=== PATIENT | male | born 1995 | race Caucasian/White ===

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

== ENCOUNTER 2017-05-09 12:56 | Emergency (ER) | payer OTHER ==
[~2017-05-09] VITALS: Ht 188 cm; Wt 72.9 kg
[~2017-05-09 12:56] MED LIST: MULT-513 PO
[2017-05-09 13:04] VITALS: TEMP 36.8; Ht 188 cm; Wt 72.9 kg
--- NOTE | 2017-05-09 15:13 | DIAGNOSTIC IMAGING REPORT ---
CHEST ONE VIEW PORTABLE CLINICAL HISTORY: 21 years-old Male presenting with palpitations. TECHNIQUE: Portable upright AP view of the chest was obtained. COMPARISON: None. FINDINGS: Mildly prominent cardiac silhouette likely due to portable AP technique. Lungs and pleural spaces clear. Osseous structures normal. Upper abdomen normal. IMPRESSION: 1. No acute cardiopulmonary disease. Electronically signed by: Les Ortega M.D. 05/09/2017 3:11 PM Dictated Date/Time: 05/09/2017 3:11 PM
[2017-05-09 15:17] LABS: BASO % 0.7 %; BASO ABS # 0.07 K/uL (0-0.2); COMPLETE YES; EOS % 7.8 %; HEMATOCRIT 44.1 % (42-52); IG% 0.2 %; LYMPH % 22.9 %; LYMPH ABS # 2.46 K/uL (1.2-3.4); MEAN CELL VOLUME 89.1 fL (80-100); MEAN CORPUSCULAR HEMOGLOBIN 31.9 pg (25-34); MEAN CORPUSCULAR HGB CONC 35.8 g/dl (32-36); MEAN PLATELET VOLUME 11.5 fL (7.4-10.4); MONO % 9.4 %; PLATELET COUNT 274 K/uL (130-400); RED BLOOD COUNT 4.95 M/uL (4.7-6.1); WHITE BLOOD COUNT 10.73 K/uL (4.8-10.8)
[2017-05-09 15:39] LABS: BLOOD UREA NITROGEN 14 mg/dl (7-18); CALCIUM 9.7 mg/dl (8.5-10.1); CARBON DIOXIDE 27 mmol/L (21-32); CHLORIDE 105 mmol/L (98-107); CREATININE 0.85 mg/dl (0.60-1.40); GLUCOSE 90 mg/dl (70-99); MAGNESIUM 2.2 mg/dl (1.8-2.4); SODIUM 140 mmol/L (136-145)
--- NOTE | 2017-05-09 16:44 | EMERGENCY ROOM VISIT NOTE ---
History Report prepared by Soy: Kareem Parmar Under the Supervision of: Dr. Evita Rianes D.O. First contact with patient: 13:55 Chief Complaint: PALPITATIONS Stated Complaint: HEART PALPITATIONS History of Present Illness The patient is a 21 year old male who presents to the Emergency Room with complaints of intermittent chest palpitations beginning four days ago. The patient was seen at [facility] just prior to arrival and was referred to the ED. He describes his symptoms as a "pounding" in his chest. He notes that he has a history of a RBBB on ECG and a history of a bicuspid aorta. The patient denies any significant dizziness, vomiting, SOB, chest pain, or nausea. He states that he tends to notice his symptoms when resting and after drinking caffeine. He notes that he had three exams this week, but does not feel that he was particularly stressed this week. The patient notes that he had a small amount of diarrhea recently. Source of History: patient Onset: Four days ago Position: chest Quality: other ("pounding") Timing: intermittent Modifying Factors (Worsening): rest, other (Caffeine) Associated Symptoms: + diarrhea, No chest pain, No SOB, No nausea, No vomiting Note: The patient denies any significant dizziness. Review of Systems See HPI for pertinent positives & negatives. A total of 10 systems reviewed and were otherwise negative. Past Medical & Surgical Medical Problems: (1) Bicuspid aortic valve (2) RBBB Family History No pertinent family history stated. Social History Smoking Status: Never Smoker Occupation Status: [employer] student Current/Historical Medications Scheduled Multivitamins/Minerals (Mvi With Minerals), 1 TAB PO DAILY Allergies Coded Allergies: No Known Allergies (Unverified , 05/09/17) Physical Exam Vital Signs Date Time Temp Pulse Resp B/P (MAP) Pulse Ox O2 Delivery O2 Flow Rate FiO2 05/09/17 16:55 88 16 112/68 98 05/09/17 16:00 72 16 120/75 98 Room Air 05/09/17 15:04 72 16 112/76 98 Room Air 05/09/17 13:06 98 Room Air 05/09/17 13:04 36.8 86 16 133/87 99 Room Air Physical Exam GENERAL: alert, well appearing, well nourished, no distress, non-toxic EYE EXAM: normal conjunctiva, PERRL and EOM's grossly intact OROPHARYNX: no exudate, no erythema, lips, buccal mucosa, and tongue normal and mucous membranes are moist NECK: supple, no nuchal rigidity, no adenopathy, non-tender LUNGS: Clear to auscultation. Normal chest wall mechanics HEART: no murmurs, S1 normal and S2 normal ABDOMEN: abdomen soft, non-tender, normo-active bowel sounds, no masses, no rebound or guarding. BACK: Back is symmetrical on inspection and there is no deformity, no midline tenderness, no CVA tenderness. SKIN: no rashes and no bruising UPPER EXTREMITIES: upper extremities are grossly normal. LOWER EXTREMITIES: No pitting edema. NEURO EXAM: Normal sensorium, cranial nerves II-XII grossly intact, normal speech, no gross weakness of arms, no gross weakness of legs. Medical Decision & Procedures ER Provider Diagnostic Interpretation: Radiology results have been interpreted by the radiologist and reviewed by me. CHEST ONE VIEW PORTABLE FINDINGS: Mildly prominent cardiac silhouette likely due to portable AP technique. Lungs and pleural spaces clear. Osseous structures normal. Upper abdomen normal. IMPRESSION: 1. No acute cardiopulmonary disease. Electronically signed by: Les Ortega M.D. 05/09/2017 3:11 PM Laboratory Results 05/09/17 14:46 Red Blood Count 4.95, Mean Corpuscular Volume 89.1, Mean Corpuscular Hemoglobin 31.9, Mean Corpuscular Hemoglobin Concent 35.8, Mean Platelet Volume 11.5, Neutrophils (%) (Auto) 59.0, Lymphocytes (%) (Auto) 22.9, Monocytes (%) (Auto) 9.4, Eosinophils (%) (Auto) 7.8, Basophils (%) (Auto) 0.7, Neutrophils # (Auto) 6.33, Lymphocytes # (Auto) 2.46, Monocytes # (Auto) 1.01, Eosinophils # (Auto) 0.84, Basophils # (Auto) 0.07 05/09/17 14:46 Test 05/09/17 14:46 White Blood Count 10.73 K/uL (4.8-10.8) Red Blood Count 4.95 M/uL (4.7-6.1) Hemoglobin 15.8 g/dL (14.0-18.0) Hematocrit 44.1 % (42-52) Mean Corpuscular Volume 89.1 fL (80-100) Mean Corpuscular Hemoglobin 31.9 pg (25-34) Mean Corpuscular Hemoglobin Concent 35.8 g/dl (32-36) Platelet Count 274 K/uL (130-400) Mean Platelet Volume 11.5 fL (7.4-10.4) Neutrophils (%) (Auto) 59.0 % Lymphocytes (%) (Auto) 22.9 % Monocytes (%) (Auto) 9.4 % Eosinophils (%) (Auto) 7.8 % Basophils (%) (Auto) 0.7 % Neutrophils # (Auto) 6.33 K/uL (1.4-6.5) Lymphocytes # (Auto) 2.46 K/uL (1.2-3.4) Monocytes # (Auto) 1.01 K/uL (0.11-0.59) Eosinophils # (Auto) 0.84 K/uL (0-0.5) Basophils # (Auto) 0.07 K/uL (0-0.2) RDW Standard Deviation 39.0 fL (36.4-46.3) RDW Coefficient of Variation 12.3 % (11.5-14.5) Immature Granulocyte % (Auto) 0.2 % Immature Granulocyte # (Auto) 0.02 K/uL (0.00-0.02) Anion Gap 8.0 mmol/L (3-11) Est Creatinine Clear Calc Drug Dose 144.1 ml/min Estimated GFR () 146.4 Estimated GFR (Non- 126.3 BUN/Creatinine Ratio 16.0 (10-20) Calcium Level 9.7 mg/dl (8.5-10.1) Magnesium Level 2.2 mg/dl (1.8-2.4) Troponin I < 0.015 ng/ml (0-0.045) Thyroid Stimulating Hormone (TSH) 1.180 uIu/ml (0.300-4.500) Laboratory results per my review. ECG Indication: palpitations Rate (beats per minute): 78 Rhythm: normal sinus Findings: no acute ischemic change, no ectopy, other (Mild intraventricular conduction delay. ) ED Course 1408: The patient was evaluated in room C5. A complete history and physical exam was performed. 1630: Upon reevaluation, the patient is feeling better. I discussed the findings and the treatment plan with the patient. He verbalizes agreement and understanding. He was discharged home. Medical Decision Differential diagnosis: Etiologies such as premature contractions, electrolyte abnormality, cardiac dysrhythmia, thyroid dysfunction, pulmonary embolism, infection, gastrointestinal, as well as others were entertained. Pt well appearing, possible palpitations related to dehydration/caffeine/ stress. No exertional sx, no syncope, no sob, doubt related to bicuspid aorta. No sx to suggest chf, acute valve failure, acute stenosis, occult infection. VS stable. No dysrhythmia noted on tele. Discussed f/u with mat tester who evaluated him this summer, sx to watch/return for, avoidance of strenuous activity/caffeine/etoh, adequate hydration, ddx, he verbalized understanding of all of this and was agreeable with plan. Impression Primary Impression: Palpitations Scribe Attestation The scribe's documentation has been prepared under my direction and personally reviewed by me in its entirety. I confirm that the note above accurately reflects all work, treatment, procedures, and medical decision making performed by me. Departure Information Dispostion Home / Self-Care Referrals No Doctor, Assigned (PCP) Patient Instructions My [facility] Additional Instructions Please follow up with your mat tester. If you have any recurrent episodes of palpitations, develop palpitations with exertion, develop chest pain or pressure , trouble breathing, dizziness, feels though you're going to black out or pass out, develop vomiting, fevers, or you have any other new concerns, please return the emergency room.
[2017-05-09 16:55] VITALS: BP 112/68; PULSE 88; O2SAT 98
== END 2017-05-09 16:56 | disposition home or self-care (01) ==
LOC: C.EDB 13:01 → C.EDC 16:56
DX: R00.2 Palpitations (principal); Z86.79 Personal history of other diseases of the circulatory system

== ENCOUNTER 2017-07-17 22:51 | Emergency (ER) | payer OTHER ==
[~2017-07-17] VITALS: Ht 188 cm; Wt 74.3 kg
[2017-07-17 22:53] VITALS: Ht 188 cm; Wt 74.3 kg
--- NOTE | 2017-07-17 23:10 | EMERGENCY ROOM VISIT NOTE ---
History Report prepared by Soy: Miky Gayle Under the Supervision of: Dr. Evita Raines D.O. First contact with patient: 23:02 Chief Complaint: GI ASSESSMENT Stated Complaint: VOMITING BLOOD Nursing Triage Summary: Pt started with diarrhea around 4pm today, states it was black and tarry looking. Pt was in shower later on and started feeling lightheaded/dizzy. Pt had gotten out and had vomited x1 since. Pt states it had red in it but he had a red gatorade earlier. Pt denies abd pain. History of Present Illness The patient is a 21 year old male who presents to the Emergency Room with complaints of a persistent need for a GI assessment that started around 8 hours ago. He says that he first started with diarrhea, and his first episode was dark , tarry, and black. He states that the first episode of diarrhea was formed, but after that, he has had liquid, dark stools every 20 minutes. The patient says that 1 hour prior to coming here, he had an episode of vomiting that was bright red, but he does note that he drank red Gatorade earlier today. He notes that he got really dizzy after the vomiting episode, which prompted him to come here. He says that the vomiting relieved his nausea, but as laying in bed here he notes that he is getting more nauseous. The patient states that he still has urges to have diarrhea. He denies any loss of consciousness, severe abdominal pain, fevers, shortness of breath, chest pain, muscle pain or weakness, or urinary symptoms. He says that he has not had any known recent sick contacts. The patient states that he has a questionable IBS history, but has never been formally diagnosed. He notes a history of a right bundle branch block. The patient denies any recent travel history. Source of History: patient Onset: Around 8 hours ago Position: other (global - need for GI assessment) Timing: other (persistent) Associated Symptoms: + nausea, + vomiting (questionable blood), + melena ( questionable), + hematochezia (questonable), No LOC, No fevers, No chest pain, No SOB, No abdominal pain (any severe), No urinary symptoms, No weakness Note: Associated symptoms: Dizziness. Denies muscle pain. Review of Systems See HPI for pertinent positives & negatives. A total of 10 systems reviewed and were otherwise negative. Past Medical & Surgical Medical Problems: (1) Bicuspid aortic valve (2) RBBB Family History Hypertension Social History Smoking Status: Never Smoker Alcohol Use: occasionally Occupation Status: [employer] student Current/Historical Medications Scheduled Pantoprazole (Protonix), 1 TAB PO DAILY Allergies Coded Allergies: No Known Allergies (Unverified , 07/18/17) Physical Exam Vital Signs Date Time Temp Pulse Resp B/P (MAP) Pulse Ox O2 Delivery O2 Flow Rate FiO2 07/18/17 03:28 36.8 92 18 126/77 97 Room Air 07/18/17 03:03 83 07/18/17 02:42 94 18 128/80 99 Room Air 90 136/87 126 128/78 07/18/17 02:13 91 18 133/84 100 Room Air 07/18/17 00:51 121 18 98 Room Air 07/18/17 00:31 98 131/80 07/17/17 23:32 120/91 07/17/17 23:31 07/17/17 23:21 133 22 99 07/17/17 23:18 133/81 07/17/17 23:07 123 07/17/17 22:53 133/113 07/17/17 22:53 37.0 130 18 133/113 97 Room Air Physical Exam GENERAL: alert, well appearing, well nourished, no distress, non-toxic EYE EXAM: normal conjunctiva, PERRL and EOM's grossly intact OROPHARYNX: no exudate, no erythema, lips, buccal mucosa, and tongue normal and mucous membranes are moist NECK: supple, no nuchal rigidity, no adenopathy, non-tender LUNGS: Clear to auscultation. Normal chest wall mechanics HEART: no murmurs, S1 normal and S2 normal ABDOMEN: abdomen soft, non-tender, normo-active bowel sounds, no masses, no rebound or guarding. BACK: Back is symmetrical on inspection and there is no deformity, no midline tenderness, no CVA tenderness. SKIN: no rashes and no bruising UPPER EXTREMITIES: upper extremities are grossly normal. LOWER EXTREMITIES: No pitting edema. NEURO EXAM: Normal sensorium, cranial nerves II-XII intact, normal speech, no weakness of arms, no weakness of legs. Medical Decision & Procedures ER Provider Diagnostic Interpretation: X-ray results have been interpreted and reviewed by me. Chest: no cardiomegaly, no effusion, no infiltrate, no wide mediastinum Abdomen: air seen throughout colon, no definite SBO, no free air CT angiogram abdomen and pelvis with contrast: Hepatic steatosis versus more likely phase of contrast enhancement. Normal appendix. Fluid throughout the colon and rectum may represent diarrheal state. No bowel obstruction or inflammation. No definite evidence of active hemorrhage in the GI tract. Small mesenteric lymph nodes are nonspecific but may be reactive. Normal vasculature. Radiologist: Desiree Chang M.D. Laboratory Results 07/17/17 23:32 Red Blood Count 4.33, Mean Corpuscular Volume 90.5, Mean Corpuscular Hemoglobin 32.1, Mean Corpuscular Hemoglobin Concent 35.5, Mean Platelet Volume 11.5, Neutrophils (%) (Auto) 72.1, Lymphocytes (%) (Auto) 15.2, Monocytes (%) (Auto) 7.8, Eosinophils (%) (Auto) 4.1, Basophils (%) (Auto) 0.5, Neutrophils # (Auto) 10.52, Lymphocytes # (Auto) 2.22, Monocytes # (Auto) 1.13, Eosinophils # (Auto) 0.60, Basophils # (Auto) 0.07 07/17/17 23:32 Test 07/17/17 23:32 White Blood Count 14.58 K/uL (4.8-10.8) Red Blood Count 4.33 M/uL (4.7-6.1) Hemoglobin 13.9 g/dL (14.0-18.0) Hematocrit 39.2 % (42-52) Mean Corpuscular Volume 90.5 fL (80-100) Mean Corpuscular Hemoglobin 32.1 pg (25-34) Mean Corpuscular Hemoglobin Concent 35.5 g/dl (32-36) Platelet Count 331 K/uL (130-400) Mean Platelet Volume 11.5 fL (7.4-10.4) Neutrophils (%) (Auto) 72.1 % Lymphocytes (%) (Auto) 15.2 % Monocytes (%) (Auto) 7.8 % Eosinophils (%) (Auto) 4.1 % Basophils (%) (Auto) 0.5 % Neutrophils # (Auto) 10.52 K/uL (1.4-6.5) Lymphocytes # (Auto) 2.22 K/uL (1.2-3.4) Monocytes # (Auto) 1.13 K/uL (0.11-0.59) Eosinophils # (Auto) 0.60 K/uL (0-0.5) Basophils # (Auto) 0.07 K/uL (0-0.2) RDW Standard Deviation 39.8 fL (36.4-46.3) RDW Coefficient of Variation 12.1 % (11.5-14.5) Immature Granulocyte % (Auto) 0.3 % Immature Granulocyte # (Auto) 0.04 K/uL (0.00-0.02) Anion Gap 4.0 mmol/L (3-11) Est Creatinine Clear Calc Drug Dose 156.1 ml/min Estimated GFR () > 150.0 Estimated GFR (Non- 129.5 BUN/Creatinine Ratio 40.7 (10-20) Calcium Level 8.6 mg/dl (8.5-10.1) Total Bilirubin 1.0 mg/dl (0.2-1) Aspartate Amino Transf (AST/SGOT) 11 U/L (15-37) Alanine Aminotransferase (ALT/SGPT) 23 U/L (12-78) Alkaline Phosphatase 93 U/L (45-117) Total Protein 7.0 gm/dl (6.4-8.2) Albumin 4.0 gm/dl (3.4-5.0) Globulin 3.0 gm/dl (2.5-4.0) Albumin/Globulin Ratio 1.3 (0.9-2) Laboratory results per my review. Medications Administered Medications (Trade) Dose Ordered Sig/Julia Route Start Time Stop Time Status Last Admin Dose Admin Ondansetron HCl (Zofran Inj) 4 mg NOW STAT IV 07/17/17 23:32 07/17/17 23:34 DC 07/17/17 23:38 4 MG Sodium Chloride 1,000 ml @ 999 mls/hr Q1H1M STAT IV 07/18/17 01:11 07/18/17 02:11 DC 07/18/17 01:30 999 MLS/HR Pantoprazole Sodium 40 mg/ Syringe 10 ml @ 5 mls/min NOW ONCE IV 07/18/17 01:15 07/18/17 01:16 DC 07/18/17 01:30 5 MLS/MIN ECG Indication: nausea Rate (beats per minute): 102 Rhythm: sinus tachycardia Findings: no acute ischemic change, no ectopy, other (chronic incomplete RBBB, normal axis, normal intervals) ED Course 233: Ordered Zofran Inj 4 mg IV. 2357: The patient was evaluated in room B10. A complete history and physical exam was performed. The patient on exam had black diarrhea that was heme positive. 0111: Ordered NSS 1000 ml @ 999 mls/hr IV. 0115: Ordered Pantoprazole Sodium 40 mg/Syringe 10 ml @ 5 mls/min IV. 0315: No abd pain, repeat abd exam soft/NT. Pt tolerating po here without difficulty, no recurrent n/v. Single episode of diarrhea here. Cultures sent. VS stable, tachy with position change but improves once still. Discussed all results at bedside. Discussed need for close follow-up with GI. Patient states his mother already arranged an appointment with a GI specialist back home for next week as he is done with school and will go home on Friday. Medical Decision Differential diagnosis: Etiologies such as diverticulosis, AVM, coagulopathy, colitis, inflammatory bowel disease, malignancy, Claudia-Hudson tear, esophagitis, peptic ulcer disease , variceal bleed, gastritis, epistaxis, fissure, hemorrhoids, as well as others were entertained. Discussed with pt likely upper GI bleed. No prior hx. Stable H/H, pt felt improved after IVF and meds here. Denies frequent use of etoh or NSAIDS. No hx of IBD or PUD. PT tolerating po and ambulating with a steady gait. Discussed avoiding acidic foods in diet, daily use of acid router tender, close f/u with GI, sx to watch/return for, he verbalized understanding and was agreeable with plan. Single episode of dark, heme positive stool here. CT reassuring. Discussed with pt possible ddx. Pt given copy of labs to take home as he stated his mother already scheduled a follow-up with GI at home next week. Medication Reconcilliation Current Medication List: was personally reviewed by me Blood Pressure Screening Patient's blood pressure: Elevated blood pressure Blood pressure disposition: Elevated BP felt to be situational Impression Primary Impression: Diarrhea Additional Impressions: GI bleed Dehydration Scribe Attestation The scribe's documentation has been prepared under my direction and personally reviewed by me in its entirety. I confirm that the note above accurately reflects all work, treatment, procedures, and medical decision making performed by me. Departure Information Dispostion Home / Self-Care Prescriptions Pantoprazole (PROTONIX) 40 Mg Tab 1 TAB PO DAILY for 30 Days, #30 TAB Prov: Evita Raines, DO 07/18/[address] [facility] (PCP) Patient Instructions My [facility] Additional Instructions Please take the acid reducing stomach medication daily until otherwise advised by a Gi specialist. Please continue to monitor for any changes in your symptoms. If you develop persistent or worsening diarrhea, have any recurrent episodes of vomiting, develop abdominal pain, fevers or chills, dizziness, please return to the ER immediately. Please avoid foods which are highly acidic could irritate your stomach including any tomato-based foods, citrus fruits, alcohol, coffee, soda. Problem Qualifiers Primary Impression: Diarrhea Diarrhea type: unspecified type Qualified Codes: R19.7 - Diarrhea, unspecified Additional Impressions: GI bleed GI bleed type/associated pathology: unspecified gastrointestinal hemorrhage type Qualified Codes: K92.2 - Gastrointestinal hemorrhage, unspecified
[2017-07-17] MEDS ORDERED: ONDANSETRON INJ 2 MG/ML 2 ML VIAL IV STA (23:32)
[2017-07-17 23:42] LABS: BASO % 0.5 %; BASO ABS # 0.07 K/uL (0-0.2); COMPLETE YES; EOS % 4.1 %; HEMATOCRIT 39.2 % (42-52); IG% 0.3 %; LYMPH % 15.2 %; LYMPH ABS # 2.22 K/uL (1.2-3.4); MEAN CELL VOLUME 90.5 fL (80-100); MEAN CORPUSCULAR HEMOGLOBIN 32.1 pg (25-34); MEAN CORPUSCULAR HGB CONC 35.5 g/dl (32-36); MEAN PLATELET VOLUME 11.5 fL (7.4-10.4); MONO % 7.8 %; NEUT % 72.1 %; PLATELET COUNT 331 K/uL (130-400); RED BLOOD COUNT 4.33 M/uL (4.7-6.1); WHITE BLOOD COUNT 14.58 K/uL (4.8-10.8)
[2017-07-17 23:58] LABS: ALT/SGPT 23 U/L (12-78); AST/SGOT 11 U/L (15-37); BLOOD UREA NITROGEN 33 mg/dl (7-18); BUN/CREATININE RATIO 40.7 (10-20); CALCIUM 8.6 mg/dl (8.5-10.1); CARBON DIOXIDE 26 mmol/L (21-32); CHLORIDE 106 mmol/L (98-107); GLUCOSE 103 mg/dl (70-99); POTASSIUM 4.3 mmol/L (3.5-5.1); SODIUM 136 mmol/L (136-145)
[2017-07-18 00:01] LABS: ALB/GLOB RATIO 1.3 (0.9-2); ALKALINE PHOSPHATASE 93 U/L (45-117)
[2017-07-18] MEDS ORDERED: SODIUM CHLORIDE 0.9% 1000ML 1,000 ML IV STA (01:11)
[2017-07-18] MEDS ORDERED: PANTOprazole INJ 40 MG in SYRINGE 0 ML IV ONE (01:15)
[2017-07-18] MEDS ORDERED: OPTIRAY 320 IV PRN (01:45)
[2017-07-18] MEDS ORDERED: PANT1TAB3 PO (03:24)
[2017-07-18 03:28] VITALS: BP 126/77; PULSE 92; TEMP 36.8; O2SAT 97
--- NOTE | 2017-07-18 06:34 | DIAGNOSTIC IMAGING REPORT ---
ABDOMEN 2VIEW W/PA CHEST RTN CLINICAL HISTORY: n/v/d nausea. Vomiting. COMPARISON STUDY: 05/09/2017 FINDINGS: The soft tissues, psoas shadows, renal outlines and intestinal gas pattern appear normal. There is no evidence for bowel obstruction. There is no evidence for free intraperitoneal air. No abnormal abdominal calcifications are seen. A frontal view of the chest was performed and is unremarkable. IMPRESSION: Normal study. The above report was generated using voice recognition software. It may contain grammatical, syntax or spelling errors. Electronically signed by: Thom Reynolds M.D. 07/18/2017 6:32 AM Dictated Date/Time: 07/18/2017 6:31 AM
--- NOTE | 2017-07-18 07:19 | DIAGNOSTIC IMAGING REPORT ---
CT ANGIOGRAM OF THE ABDOMEN AND PELVIS CLINICAL HISTORY: Hematochezia. Hematemesis. COMPARISON STUDY: Abdominal radiograph dated 07/17/2017. TECHNIQUE: Following the IV administration of 93 cc of Optiray 320, CT angiogram of the abdomen and pelvis was performed from the lung bases the proximal femora. Images are reviewed in the axial, sagittal, and coronal planes. 3-D MIPS images are created and assessed. IV contrast was administered without complication. A dose lowering technique was utilized adhering to the principles of ALARA. The examination is modestly degraded by motion artifact. CT DOSE: 427.69 mGy.cm FINDINGS: Lower chest: The heart is normal in size and without pericardial effusion. The lung bases are clear. Liver: The contrast-enhanced liver is normal in size, contour, and attenuation. There is no intrahepatic or ductal dilatation. The main portal veins appear patent. Gallbladder: Unremarkable. Spleen: Normal in size and attenuation noting heterogeneous arterial phase enhancement. Pancreas: Unremarkable. Adrenal glands: Unremarkable. Kidneys: The contrast enhanced kidneys are normal in size and without hydronephrosis. The kidneys enhance symmetrically. Abdominal aorta and iliac arteries: The abdominal aorta is normal in course and caliber. The iliac arteries are widely patent bilaterally. Major branches of the abdominal aorta: The celiac trunk, superior mesenteric, and inferior mesenteric arteries are widely patent. Hepatic arterial anatomy is conventional. The splenic artery is widely patent. There are single bilateral renal arteries which are widely patent. Bowel: There is liquid stool seen in the colon. There is no colonic wall thickening or pericolonic inflammation. No bowel obstruction is identified. The appendix is well-visualized and normal. Peritoneum: There is no intraperitoneal free air or abdominal ascites. Lymphadenopathy: Prominent mesenteric lymph nodes may be a reactive basis. These are not pathologically enlarged by size criteria. Pelvic viscera: The bladder, prostate, and seminal vesicles are normal as visualized. Skeletal structures: No destructive bony lesions are seen. IMPRESSION: 1. Liquid stool is noted in the colon. Correlate clinically for evidence of a diarrheal illness. There is no associated colonic wall thickening or pericolonic inflammation. 2. Unremarkable CT angiogram of the abdomen and pelvis. Electronically signed by: Kayode Smith M.D. 07/18/2017 7:18 AM Dictated Date/Time: 07/18/2017 7:13 AM
== END 2017-07-18 03:32 | disposition home or self-care (01) ==
LOC: EDBD 22:51 → C.EDB 22:52
DX: R19.7 Diarrhea, unspecified (principal); K92.2 Gastrointestinal hemorrhage, unspecified; E86.0 Dehydration; I45.10 Unspecified right bundle-branch block; Q23.1 Congenital insufficiency of aortic valve; Z82.49 Family history of ischemic heart disease and other diseases of the circulatory system